=== PATIENT | female | born 1945 | race Hispanic/Latino ===

== ENCOUNTER 2016-12-09 16:05 | Emergency (ER) | payer MEDICARE ==
[2016-12-09 16:06] VITALS: BMI 19.5
[2016-12-09 16:53] VITALS: BP 172/68; PULSE 62; RESP 16; TEMP 98.1; O2SAT 100
--- NOTE | 2016-12-09 17:11 | ED PDOC ---
Arrival/HPI - General Chief Complaint: Trauma Time Seen by Provider: 12/09/16 16:09 Historian: Patient - History of Present Illness Narrative History of Present Illness (Text): 12/09/16 17:08 70yo female with PMhx of hypertension, CAD with cardiac stents present with right sided back pain s/p trauma this afternoon. States she fell of a chair, while standing on top of the chair and cleaning. 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 Pain is worse with lateral movement of trunk. Denies hitting her head any where. Denies LOC. States she was on anticoagulant until recently. Denies saddle anesthesia, urinary/fecal incontinence, abdominal pain, nausea, focal weakness. Past Medical History - Provider Review Nursing Documentation Reviewed: Yes - Infectious Disease Hx of Infectious Diseases: None - Tetanus Immunization Tetanus Immunization: Unknown - Reproductive Menopause: Yes - Cardiac Hx Cardiac Disorders: Yes Hx Hypertension: Yes Other/Comment: cardiac stent - Pulmonary Hx Respiratory Disorders: No - Neurological Hx Neurological Disorder: No - HEENT Hx HEENT Disorder: No - Renal Hx Renal Disorder: Yes Other/Comment: renal insuff. - Endocrine/Metabolic Hx Endocrine Disorders: Yes Hx Hypothyroidism: Yes - Hematological/Oncological Hx Blood Disorders: No - Integumentary Hx Dermatological Disorder: No - Musculoskeletal/Rheumatological Hx Falls: No - Gastrointestinal Hx Gastrointestinal Disorders: No - Genitourinary/Gynecological Hx Genitourinary Disorders: No - Psychiatric Hx Anxiety: Yes Hx Substance Use: No - Surgical History Hx Cardiac Catheterization: Yes Hx Coronary Stent: Yes (2 in 2007, 1 in January 2015) - Anesthesia Hx Anesthesia Reactions: No Hx Malignant Hyperthermia: No - Suicidal Assessment Feels Threatened In Home Enviroment: No Family/Social History - Physician Review Nursing Documentation Reviewed: Yes Family/Social History: Unknown Family HX Smoking Status: Former Smoker Hx Alcohol Use: No Hx Substance Use: No Allergies/Home Meds Allergies/Adverse Reactions: Allergies No Known Allergies Allergy (Verified 12/25/11 08:20) Home Medications: Home Meds Medication Instructions Recorded Confirmed ALPRAZolam [Xanax] 0.25 mg PO HS 12/24/15 12/24/15 Amlodipine Besylate [Norvasc] 5 mg PO DAILY 12/24/15 12/24/15 Aspirin [Aspirin EC] 81 mg PO DAILY 12/24/15 12/24/15 Clopidogrel [Plavix] 75 mg PO DAILY 12/24/15 12/24/15 Famotidine [Pepcid] 40 mg PO DAILY 12/24/15 12/24/15 Fenofibrate [Tricor] 48 mg PO DAILY 12/24/15 12/24/15 Folic Acid [Folic Acid] 1 mg PO DAILY 12/24/15 12/24/15 Furosemide [Lasix] 20 mg PO MWF 12/24/15 12/24/15 Irbesartan [Irbesartan] 300 mg PO DAILY 12/24/15 12/24/15 Levothyroxine [Synthroid] 88 mcg PO DAILY 12/24/15 12/24/15 Magnesium Oxide [Mag-Ox] 400 mg PO DAILY 12/24/15 12/24/15 Metoprolol Tartrate [Lopressor] 25 mg PO DAILY 12/24/15 12/24/15 Rosuvastatin Calcium [Crestor] 20 mg PO DAILY 12/24/15 12/24/15 Review of Systems - Physician Review All systems were reviewed & negative as marked: Yes - Review of Systems Constitutional: Normal Eyes: Normal ENT: Normal Respiratory: Normal Cardiovascular: Normal Gastrointestinal: Normal Genitourinary Female: Normal Musculoskeletal: Back Pain Skin: Normal Neurological: Normal Endocrine: Normal Hemo/Lymphatic: Normal Psychiatric: Normal Physical Exam Vital Signs Reviewed: Yes Vital Signs Temp Pulse Resp BP Pulse Ox 12/09/16 16:50 98.1 F 62 16 172/68 H 100 Temperature: Afebrile Blood Pressure: Normal Pulse: Regular Respiratory Rate: Normal Appearance: Positive for: Well-Appearing, Non-Toxic, Comfortable Pain Distress: None Mental Status: Positive for: Alert and Oriented X 3 - Systems Exam Head: Present: Atraumatic, Normocephalic Pupils: Present: PERRL Extroacular Muscles: Present: EOMI Conjunctiva: Present: Normal Mouth: Present: Moist Mucous Membranes Neck: Present: Normal Range of Motion Respiratory/Chest: Present: Clear to Auscultation, Good Air Exchange. No: Respiratory Distress, Accessory Muscle Use Cardiovascular: Present: Regular Rate and Rhythm, Normal S1, S2. No: Murmurs Abdomen: Present: Normal Bowel Sounds. No: Tenderness, Distention, Peritoneal Signs Back: Present: Paraspinal Tenderness (Right sided parathoracic and paralumbar tenderness). No: Midline Tenderness, Pain with Leg Raise Upper Extremity: Present: Normal Inspection. No: Cyanosis, Edema Lower Extremity: Present: Normal Inspection. No: Edema Neurological: Present: GCS=15, CN II-XII Intact, Speech Normal Skin: Present: Warm, Dry, Normal Color. No: Rashes Psychiatric: Present: Alert, Oriented x 3, Normal Insight, Normal Concentration Medical Decision Making ED Course and Treatment: 12/09/16 18:[address] - No acute finding LS and Thoracic spine xray - No fracture noted. DJD noted Pt was ambulatory in ED. She was comfortable in ED. She have no focal neurological deficit in ED Result was DW the pt. She was DW home with rx of Tramdol. Referred her PMD/ ortho. TRT ED for any new or worsening symptoms. - RAD Interpretation Radiology Orders: 12/09/16 17:03 DORSAL (THORACIC) SPINE [RAD] Stat 12/09/16 17:04 HEAD W/O CONTRAST [CT] Stat LS SPINE WITH OBL > 18 YRS OLD [RAD] Stat - Medication Orders Current Medication Orders: Discontinued Medications Tramadol HCl (Ultram) 50 mg PO STAT STA Stop: 12/09/16 17:18 Disposition/Present on Arrival - Present on Arrival Any Indicators Present on Arrival: No History of DVT/PE: No History of Uncontrolled Diabetes: No Urinary Catheter: No History of Decub. Ulcer: No History Surgical Site Infection Following: None - Disposition Have Diagnosis and Disposition been Completed?: Yes Diagnosis: Back pain Disposition: HOME/ ROUTINE Disposition Time: 18:20 Patient Plan: Discharge Condition: STABLE Discharge Instructions (ExitCare): Back Pain (ED) Additional Instructions: Follow up with your doctor/orthopedist Return to ED for any new or worsening symptoms Prescriptions: traMADol [Ultram] 50 mg PO TID #10 tab Referrals: Franc Fuentes MD [Primary Care Provider] - Follow up with primary Raghav Merritt DO [Staff Provider] - Follow up with primary
--- NOTE | 2016-12-09 17:58 | CT ---
PROCEDURE: CT HEAD WITHOUT CONTRAST. HISTORY: head injury COMPARISON: None available. TECHNIQUE: Axial computed tomography images were obtained through the head/brain without intravenous contrast. Radiation dose: Total exam DLP = 846.4 mGy-cm. This CT exam was performed using one or more of the following dose reduction techniques: Automated exposure control, adjustment of the mA and/or kV according to patient size, and/or use of iterative reconstruction technique. FINDINGS: HEMORRHAGE: No acute parenchymal, subarachnoid or extra-axial hemorrhage. BRAIN: Mild chronic periventricular white matter ischemic changes seen extending peripherally into the deep and to a lesser degree subcortical white matter of both cerebral hemispheres. Minor vascular calcifications are present. VENTRICLES: Mild generalized volume loss. CALVARIUM: There are no acute calvarial fractures. PARANASAL SINUSES: Visualized paranasal sinuses are well-developed and currently well-aerated. Minor mucosal thickening seen within 1 or 2 left-sided ethmoid air cells. MASTOID AIR CELLS: Unremarkable as visualized. No inflammatory changes. OTHER FINDINGS: None. IMPRESSION: No acute intracranial hemorrhage. Mild chronic white matter ischemic changes.
--- NOTE | 2016-12-10 14:31 | RAD ---
HISTORY: back pain s/p trauma COMPARISON: Correlation made with concurrent radiographs of the lumbar spine and CT scan abdomen pelvis 04/30/2015 which image the lower thoracic spine. FINDINGS: BONES: No evidence of acute compression fractures nor retropulsed fragments. Minor chronic anterior stature loss of a few upper thoracic segments. . DISC SPACES: Mild multilevel degenerative spondylosis. Changes include varying degrees of disc space narrowing with endplate eburnation and small anterolateral osteophyte formation. SOFT TISSUES: Normal. OTHER FINDINGS: None. IMPRESSION: No acute displaced fracture nor nor retropulsed fragments. Minor chronic anterior stature loss of a few upper thoracic segments. Multilevel degenerative spondylosis.
--- NOTE | 2016-12-10 15:36 | RAD ---
PROCEDURE: Radiographs of the Lumbar Spine. HISTORY: back pain s/p trauma COMPARISON: No prior. FINDINGS: BONES: No evidence of acute compression fractures no retropulsed fragments. Vertebral bodies exhibit relatively normal stature and alignment. Facets normally aligned. DISC SPACES: Mild multilevel degenerative spondylosis. Changes include varying degrees of disc space narrowing more so along the posterior disc margins with small anterolateral osteophyte formation. Changes also noted at the visualized lower thoracic disc space levels as well. Facet joints are hypertrophic at the L5-S1 through the L1 L2 levels in decreasing order of severity. OTHER FINDINGS: Mild DJD left hip. Vascular calcifications of the abdominal aorta. Findings also consistent with mild constipation. IMPRESSION: No acute fractures. Mild degenerative spondylosis as above
== END 2016-12-09 18:45 | disposition home or self-care (01) ==
LOC: ED 16:05
DX: M54.9 Dorsalgia, unspecified (principal); E03.9 Hypothyroidism, unspecified; I10 Essential (primary) hypertension; I25.10 Atherosclerotic heart disease of native coronary artery without angina pectoris; Z95.5 Presence of coronary angioplasty implant and graft

== ENCOUNTER 2018-12-13 08:05 | Outpatient (CLI) | payer MEDICARE | END 2018-12-13 08:06 | disposition home or self-care (01) | LOC: RAD 08:05 ==

== ENCOUNTER 2018-12-27 07:18 | Outpatient (CLI) | payer MEDICARE | END 2018-12-27 07:19 | disposition home or self-care (01) | LOC: CARDIO 07:18 ==